=== PATIENT | male | born 1965 | race African-American/Black ===

== ENCOUNTER 2024-02-01 12:00 | Inpatient (IN) | payer OTHER ==
[2024-02-01 12:33] VITALS: BMI 23.5
[2024-02-01] MEDS ORDERED: IBUPROFEN 400 MG TABLET (FP) PO PRN (13:51)
[2024-02-01] MEDS ORDERED: MAG HYDROX/AL HYDROX/SIMETH 30 ML UNIT-DOSE CUP PO PRN (13:51)
[2024-02-01] MEDS ORDERED: MAGNESIUM HYDROX 2400MG/30ML ORAL SUSPENSION 30 ML CUP PO PRN (13:51)
[2024-02-01] MEDS ORDERED: guaiFENesin 600 MG TABLET.ER (FP) PO PRN (13:51)
[2024-02-01] MEDS ORDERED: POLYETHYLENE GLYCOL (HEALTHYLAX) 3350 17 GM PACKET PO PRN (13:51)
[2024-02-01] MEDS ORDERED: LOPERAMIDE HCL 2 MG CAPSULE PO PRN (13:51)
[2024-02-01] MEDS ORDERED: BENZOCAINE/MENTHOL (CHLORASEPTIC ) LOZENGE MM PRN (13:51)
[2024-02-01] MEDS ORDERED: BENZONATATE 200 MG CAPSULE PO PRN (13:51)
[2024-02-01] MEDS ORDERED: IBUPROFEN 600 MG TABLET (FP) PO PRN (13:51)
[2024-02-01] MEDS ORDERED: NICOTINE POLACRILEX 2 MG LOZENGE BC PRN (13:51)
[2024-02-01] MEDS ORDERED: ACETAMINOPHEN 325 MG TABLET (FP) PO PRN (13:51)
[2024-02-01] MEDS ORDERED: NICOTINE POLACRILEX 2 MG GUM BUC PRN (13:51)
[2024-02-01 19:08] LABS: URINE APPEARANCE CLEAR; URINE BILIRUBIN NEGATIVE (NEGATIVE); URINE COLOR YELLOW; URINE GLUCOSE (UA) NEGATIVE (NEGATIVE); URINE KETONE NEGATIVE (NEGATIVE); URINE LEUK ESTERASE NEGATIVE (NEGATIVE); URINE NITRITE NEGATIVE (NEGATIVE); URINE PROTEIN NEGATIVE (NEGATIVE)
[2024-02-01] MEDS: THIAMINE 100 MG TABLET PO SCH (21:09)
[2024-02-01] MEDS: traZODone HCL 100 MG TABLET (FP) PO SCH (21:09)
[2024-02-01] MEDS: MELATONIN 5 MG TABLETS PO SCH (21:09)
[2024-02-01] MEDS: risperiDONE 1 MG TABLET PO SCH (21:09)
[2024-02-02] MEDS: SERTRALINE HCL 50 MG TABLET (FP) PO SCH (10:04)
[2024-02-02] MEDS: ASPIRIN COATED 81 MG TABLET.EC PO SCH (10:04)
[2024-02-02] MEDS: PRENATAL VITAMINS W/ FOLIC ACID TABLET (FP) PO SCH (10:05)
[2024-02-02 13:19] LABS: HEMATOCRIT 38.6 % (35.4-49); HEMOGLOBIN 12.8 GM/dL (11.7-16.9); MCH 29.8 pg (25.7-33.7); MCHC 33.2 g/dl (32.0-35.9); MEAN CELL VOLUME 89.8 fl (80-96); MEAN PLT VOLUME 8.7 fl (7.5-11.1); PLATELET COUNT 205 10^3/uL (134-434)
[2024-02-02 14:15] LABS: CALCIUM 9.3 mg/dL (8.5-10.1)
[2024-02-02 14:18] LABS: CREATININE 0.8 mg/dL (0.55-1.3)
[2024-02-02 14:20] LABS: BILIRUBIN,TOTAL 0.5 mg/dL (0.2-1); TOT PROT 6.4 g/dl (6.4-8.2)
[2024-02-02 14:24] LABS: ALBUMIN 3.3 g/dl (3.4-5.0)
[2024-02-02 15:03] LABS: SYPHILIS W/ RPR CONF REACTIVE (NONREACTIVE)
[2024-02-07] MEDS: risperiDONE 3 MG TABLET PO SCH (21:15)
[2024-02-14 06:30] VITALS: RESP 16
[2024-02-15 06:32] VITALS: BP 137/87; PULSE 73; TEMP 97.9
[2024-02-15] MEDS: NALOXONE (NYS OPIOID OVERDOSE PROGRAM) 4 MG/0.1 ML SPRAY NS SCH (09:26)
== END 2024-02-15 09:35 | disposition home or self-care (01) | DRG 772 ==
LOC: YASAS 12:00 → Y3E 15:16
PROVIDERS: ADMIT Psychiatry & Neurology Pain Medicine; ATTEND Psychiatry & Neurology Pain Medicine
PROC: HZ42ZZZ Group Counseling for Substance Abuse Treatment, Cognitive-Behavioral (ICD-10-PCS; principal; 2024-01-31)
DX: F14.20 Cocaine dependence, uncomplicated (principal); F10.20 Alcohol dependence, uncomplicated; F17.210 Nicotine dependence, cigarettes, uncomplicated; F32.A Depression, unspecified; R76.8 Other specified abnormal immunological findings in serum; Z62.810 Personal history of physical and sexual abuse in childhood; Z86.19 Personal history of other infectious and parasitic diseases
CPT/HCPCS: 36415; 80053; 80305; 81003; 82962; 85027; 86593; 86780; 86803; 87811; 93005; 93010